=== PATIENT | male | born 1935 | race Caucasian/White ===

== ENCOUNTER 2017-11-11 06:24 | Emergency (ER) | payer OTHER ==
--- NOTE | 2017-11-11 06:31 | ED Physician Documentation ---
General Adult - HISTORIAN Historian: patient - HPI Chief Complaint: General Adult Additional Information: Patient's story:Patient stated he has some arthritic changes in his left ankle. When he awoke this morning his ankle was hurting him a little bit more and was not able to walk on as he normally does. Patient does not recall that he has had any slurred speech patient drooping weakness in his leg or any CVA like symptoms. Patient states this time he seemed to be normal and at his baseline. Patient did wake up at approximately 5:15 AM. Patient states that she noticed when he woke up and was having some difficulty with ambulation and felt that his left lower extremity was weak. Patient is seem to have symptoms which he woke up and she was not sure at what time they started.Patient did not seem to be maintaining normally. She felt that he was having some slurred speech and patient drooping. She subsequently called an ambulance. Patient refused to come to the hospital in an ambulance. Patient subsequently was transported by private vehicle. At the time of admission to the ED she states that all of his symptoms have pretty much resolved. Patient is not had any previous TIA or CVA. Patient is diabetic and does have a history of hypertension. Patient has not been taking aspirin therapy. Onset: hours (woke up t about 5AM with symptoms) Timing: still present Severity: mild - ROS CONST: no problems. denies: chills EYES/ENT: denies: problems with vision CVS/RESP: denies: shortness of breath NEURO/PSYCH: difficulty walking (patient states due to arthritis), difficulty with speech (according to his , patient denies any symptoms.). denies: headache, tingling, numbness - PAST HX Past History: hypertension, other (polymyositis) Other History: diabetes Type 2 Surgeries/Procedures: none Immunizations: referred to PCP - SOCIAL HX Smoking History: non-smoker Alcohol Use: none Drug Use: none - FAMILY HX Family History: No - REVIEWED ASSESSMENTS Nursing Assessment Reviewed: Yes Vitals Reviewed: Yes <Genaro Momin - Last Filed: 11/11/17 06:53> - HISTORIAN Historian: patient, spouse - HPI Timing: better Further Comments: yes (he is "fine" per report was concerned he was having stroke like symptoms . She states he was not using his left leg normally - pt states that he was having pain from his normal arthritis.) - VITAL SIGNS Vital Signs: Vital Signs Temp Pulse Resp BP Pulse Ox 97.9 F 81 16 159/61 97 11/11/17 06:24 11/11/17 06:24 11/11/17 06:24 11/11/17 06:24 11/11/17 06:24 <Daysi Corral - Last Filed: 11/11/17 07:59> - PAST HX Allergies/Adverse Reactions: Allergies Allergy/AdvReac Type Severity Reaction Status Date / Time Penicillins Allergy Intermediate hives Verified 11/11/17 07:03 lisinopril AdvReac Mild cough Verified 11/11/17 07:03 Home Medications: Ambulatory Orders Medication Instructions Recorded Aspirin [Aspirin Ec] 81 mg PO DAILY u2 05/14/14 Atorvastatin Calcium [Lipitor] 20 mg PO HS u2 05/14/14 Benazepril HCl 20 mg PO DAILY u2 05/14/14 Glipizide [Glucotrol] 10 mg PO BID u2 05/14/14 Hydrochlorothiazide 12.5 mg PO DAILY av 05/14/14 Insulin Glargine,Hum.rec.anlog 10 unit SQ HS 05/14/14 [Lantus Solostar] Metformin HCl [Glucophage] 1,000 mg PO BID u2 11/16/15 Progress - Progress Progress: 0745: after EKG - results discussed and he does now note the LBBB is not new to him. He states he was told this was an issue about 9 years ago. He states he was aware and he was told this would not kill him. He is not concerned about this issue. is at bedside and she does agree this was not new and had been addressed in the past DG <Daysi Corral - Last Filed: 11/11/17 07:59> ED Results Lab/Radiology - Lab Results Lab Results: Lab Results 11/11/17 07:05 WBC 5.70 K/ul K/ul (4.00-12.00) RBC 4.83 M/ul M/ul (3.90-5.20) Hgb 13.5 g/dL g/dL (12.0-18.0) Hct 41.3 % % (37.0-53.0) MCV 85.5 fl fl (80.0-100.0) MCH 27.9 pg L pg (28.0-34.0) MCHC 32.7 g/dL g/dL (30.0-36.0) RDW 13.4 % % (11.3-14.3) Plt Count 252 K/mm3 K/mm3 (130-400) Neut % (Auto) 71.0 % % (39.0-79.0) Lymph % (Auto) 19.9 % % (16.0-50.0) Bowie % (Auto) 5.4 % % (0.0-11.0) Eos % (Auto) 1.6 % % (0.0-6.8) Baso % (Auto) 0.3 (0.0-1.5) Neut # (Auto) 4.1 # k/uL # k/uL (1.4-7.7) Lymph # (Auto) 1.1 # k/uL # k/uL (0.6-4.0) Bowie # (Auto) 0.3 # k/uL # k/uL (0.0-0.9) Eos # (Auto) 0.1 # k/uL # k/uL (0.0-0.6) Baso # (Auto) 0.0 # k/uL # k/uL (0.0-0.5) Reactive Lymphs % 1.7 % % (0.0-5.0) Reactive Lymphs # 0.1 # k/uL # k/uL (0.0-0.8) - Radiology Radiology Impressions: CT head without contrast History: Transient ischemic attack Technique: Images through the brain were obtained without contrast. Findings: No mass, midline shift, obstructive hydrocephalus or acute intracranial hemorrhage is present. The ventricles and cortical sulci are slightly enlarged, consistent with age. No extraaxial fluid collection is identified. Impression: No acute intracranial process. Electronically signed on Nov 11, 2017 7:38:54 AM CDT by: Giovanny Avila Chest, PA and lateral History: Left bundle branch block Findings: There is no infiltrate, effusion or pneumothorax. Heart size, mediastinum and pulmonary vascularity are normal. Impression: No active pulmonary disease. Electronically signed on Nov 11, 2017 7:43:27 AM CDT by: Giovanny Avila - Orders Orders: ED Orders Category Date Time Status Place IV Lock 1T Care 11/11/17 06:[address] BRAIN W/O CONTRAST Stat Exams 11/11/17 Ordered CBC/PLATELET/DIFF Routine Lab 11/11/17 07:05 Received CMP Routine Lab 11/11/17 Ordered PT-INR Routine Lab 11/11/17 07:05 Received UA W/MICRO IF INDICATED Routine Lab 11/11/17 07:00 Ordered Chem Sticks Med 11/11/17 07:00 Ordered 1 each CHEMQ <Daysi Corral - Last Filed: 11/11/17 07:59> General Adult Physical Exam - PHYSICAL EXAM GENERAL APPEARANCE: no distress EENT: ENT inspection normal, pharynx normal, no signs of dehydration, ZULY. No : EOM palsy NECK: normal inspection, thyroid normal, supple. No: lymphadenopathy RESPIRATORY: no resp distress, chest non-tender, breath sounds normal. No: wheezes, rales, rhonchi CVS: reg rate & rhythm, heart sounds normal, equal pulses ABDOMEN: soft, no organomegaly, normal bowel sounds, no abdominal bruit, no distension BACK: normal inspection, no CVA tenderness SKIN: warm/dry, normal color EXTREMITIES: non-tender, normal range of motion, no edema NEURO: oriented X3, CN's nml as tested, motor nml, sensation nml, mood/affect nml, cognition normal. No: weakness/sensory loss, speech/cognition abnml, facial droop, sensory/motor deficit, asymmetric reflexes (2/4) <Genaro Momin - Last Filed: 11/11/17 06:53> - PHYSICAL EXAM GENERAL APPEARANCE: no distress NECK: normal inspection RESPIRATORY: no resp distress, chest non-tender, breath sounds normal CVS: reg rate & rhythm, heart sounds normal, equal pulses ABDOMEN: soft BACK: normal inspection SKIN: warm/dry EXTREMITIES: non-tender NEURO: oriented X3, CN's nml as tested, motor nml, sensation nml, mood/affect nml, cognition normal. No: facial droop, sensory/motor deficit <Daysi Corral - Last Filed: 11/11/17 07:59> Discharge <Genaro Momni - Last Filed: 11/11/17 06:53> Comments: 1. Follow up with PCP in 2-4 days 2. Return to ER for any chest pain, shortness of breath, weakness or any other concerns 3. Take your aspirin daily as prescribed Decision to Admit: NO Date of Decison to Admit: 11/11/17 Decision Time: 07:59 <Daysi Corral - Last Filed: 11/11/17 07:59> Clincal Impression: Weakness, Left bundle branch block Ankle pain, chronic Qualifiers: Laterality: left Qualified Code(s): M25.572 - Pain in left ankle and joints of left foot; G89.29 - Other chronic pain; G89.29 - Other chronic pain Referrals: Genaro Momin MD [Primary Care Provider] - 2 Days Condition: Stable Disposition: 01 HOME, SELF-CARE
[2017-11-11 07:11] LABS: BASOPHILS % 0.3 (0.0-1.5); EOSINOPHILS % 1.6 % (0.0-6.8); MEAN CORPUSCULAR HEMOGLOBIN 27.9 pg (28.0-34.0); MEAN CORPUSCULAR VOLUME 85.5 fl (80.0-100.0); MONOCYTES % 5.4 % (0.0-11.0); NEUTROPHILS # 4.1 # k/uL (1.4-7.7)
[2017-11-11] MEDS ORDERED: ASPIRIN 81 MG CHEW TAB ONE (07:21)
[2017-11-11] MEDS ORDERED: ASPIRIN 81 MG CHEW TAB PO ONE (07:23)
[2017-11-11 07:27] LABS: eGFR (African) > 60; eGFR (Non-African) > 60
--- NOTE | 2017-11-11 08:09 | Diagnostic Imaging Report ---
[facility] [address] [facility].[address] [address] Report Submission Date: Nov 11, 2017 7:43:27 AM CDT Patient Study Name: KATELYN HENSON Date: Nov 11, 2017 7:24:16 AM CDT Modality Type: DX Gender: M Description: CHEST : 39 Institution: [facility] Physician: CELE ACUNA Chest, PA and lateral History: Left bundle branch block Findings: There is no infiltrate, effusion or pneumothorax. Heart size, mediastinum and pulmonary vascularity are normal. Impression: No active pulmonary disease. Electronically signed on Nov 11, 2017 7:43:27 AM CDT by: Giovanny GAMBLE
--- NOTE | 2017-11-11 08:10 | Diagnostic Imaging Report ---
[facility] [address] [facility].[address] [address] Report Submission Date: Nov 11, 2017 7:38:54 AM CDT Patient Study Name: KATELYN HENSON Date: Nov 11, 2017 7:03:04 AM CDT Modality Type: CT\SR Gender: M Description: CT BRAIN W/O CONTRAST : 39 Institution: [facility] Physician: OCTAVIANO BUTT CT head without contrast History: Transient ischemic attack Technique: Images through the brain were obtained without contrast. Findings: No mass, midline shift, obstructive hydrocephalus or acute intracranial hemorrhage is present. The ventricles and cortical sulci are slightly enlarged, consistent with age. No extraaxial fluid collection is identified. Impression: No acute intracranial process. Electronically signed on Nov 11, 2017 7:38:54 AM CDT by: Giovanny GAMBLE
[2017-11-11 08:12] VITALS: BP 137/61
[2017-11-12 07:20] LABS: APPEARANCE,URINE CLEAR (CLEAR); COLOR,URINE YELLOW (YELLOW); OCCULT BLOOD,URINE 2+ (NEGATIVE); PH URINE 6.5 (5.0 - 8.0); UROBILINOGEN URINE 0.2 Eu (0.2-1.0)
== END 2017-11-11 08:11 | disposition home or self-care (01) ==
LOC: ED 06:24
DX: R53.1 Weakness (principal); M25.572 Pain in left ankle and joints of left foot; G89.29 Other chronic pain
CPT/HCPCS: 70450; 71046; 80053; 81002; 82553; 84484; 85025; 85610; 99283; S1016

== ENCOUNTER 2019-07-26 05:14 | Emergency (ER) | payer OTHER ==
--- NOTE | 2019-07-26 05:55 | ED Physician Documentation ---
General Adult - HISTORIAN Historian: patient - HPI Stated Complaint: lower abd pain, difficulty voiding, urgency Chief Complaint: Male Genitourinary Problems Onset: hours (8) Timing: worse Further Comments: yes (He has a history of enlarged prostate and he states he has been on meds since January. He reports he went to the bathroom normal void about 10 pm and he woke at 2 am needing to urinate and he was not able. HE denies any burning at other times recently and he frequently has pressure but at 10 pm he had a normal stream. NO fever. No other complaints) - ROS CONST: no problems - PAST HX Past History: other (enlarged prostate ) Other History: diabetes Type 2 Immunizations: UTD Allergies/Adverse Reactions: Allergies Allergy/AdvReac Type Severity Reaction Status Date / Time Penicillins Allergy Intermediate hives Verified 07/26/19 05:43 lisinopril AdvReac Mild cough Verified 07/26/19 05:43 Home Medications: Ambulatory Orders Medication Instructions Recorded Atorvastatin Calcium [Lipitor] 20 mg PO HS u2 05/14/14 Glipizide [Glucotrol] 10 mg PO BID u2 05/14/14 Insulin Glargine,Hum.rec.anlog 12 unit SQ HS 05/14/14 [Lantus Solostar] Metformin HCl [Glucophage] 1,000 mg PO BID u2 11/16/15 Metoprolol Tartrate [Lopressor] 25 mg PO BID 07/26/19 Rivaroxaban [Xarelto] 15 mg PO DAILY 07/26/19 Tamsulosin HCl 0.4 mg PO DAILY 07/26/19 - SOCIAL HX Smoking History: non-smoker Alcohol Use: none Drug Use: none - FAMILY HX Family History: No - VITAL SIGNS Vital Signs: Vital Signs Temp Pulse Resp BP Pulse Ox 97.8 F 107 H 20 161/97 98 07/26/19 05:35 07/26/19 05:35 07/26/19 05:35 07/26/19 05:35 07/26/19 05:35 - REVIEWED ASSESSMENTS Nursing Assessment Reviewed: Yes Vitals Reviewed: Yes General Adult Physical Exam - PHYSICAL EXAM GENERAL APPEARANCE: moderate distress EENT: eye inspection normal, no signs of dehydration NECK: normal inspection RESPIRATORY: no resp distress, chest non-tender, breath sounds normal CVS: reg rate & rhythm, heart sounds normal ABDOMEN: soft, distended (resloved post I&O) SKIN: warm/dry EXTREMITIES: non-tender NEURO: oriented X3 Discharge Clincal Impression: Urinary retention Referrals: Genaro Momin MD [Primary Care Provider] - 2 Days Comments: 1. Continue current meds 2. Return to ER for any increased discomfort Condition: Stable Disposition: 01 HOME, SELF-CARE Decision to Admit: NO Date of Decison to Admit: 07/26/19 Decision Time: 06:23
[2019-07-26 06:24] LABS: APPEARANCE,URINE CLEAR (CLEAR); COLOR,URINE YELLOW (YELLOW); OCCULT BLOOD,URINE 3+ (NEGATIVE); UROBILINOGEN URINE 0.2 Eu (0.2-1.0)
[2019-07-26 06:30] VITALS: BP 138/78
== END 2019-07-26 06:25 | disposition home or self-care (01) ==
LOC: ED 05:14
DX: R33.9 Retention of urine, unspecified (principal)
CPT/HCPCS: 51701; 81002; 99282